=== PATIENT | female | born 1940 | race Caucasian/White ===

== ENCOUNTER 2018-04-18 10:42 | Inpatient (IN) | payer OTHER, MEDICAID ==
[~2018-04-18] VITALS: Ht 165.1 cm; Wt 116.1 kg
[2018-04-18 10:42] VITALS: BP 138/75
[~2018-04-18 10:42] MED LIST: ALLO300T28 PO; BENA1TAB PO; GLIM4TAB PO; METF100028 PO; [UNRECOGNIZED DRUG - CODE] PO
--- NOTE | 2018-04-18 10:42 | NUR ---
Pt taken to bed 10 via w/c and triaged at bedside. at bedside providing history.
--- NOTE | 2018-04-18 10:44 | NUR ---
PT TAKEN BY WHEELCHAIR TO ER BED 10
--- NOTE | 2018-04-18 10:50 | NUR ---
77Y/F BIB C/O ALOC FOR THE PAST 2 DAYS; PER PT NORMALLY CONVERSES AND "TALKS A LOT." BUT PATIENT NOW IS DISORIENTED AND CONFUSED AND HAS NOT BEEN TALKING; STATES " I THINK SHE HAD ANOTHER STROKE." VSS; PATIENT POSITIONED FOR COMFORT; HOB ELEVATED; BEDRAILS UP X1; BED DOWN. ER MD MADE AWARE OF PT STATUS.
[2018-04-18] MEDS ORDERED: CLON0.1T42 PO (10:56)
[2018-04-18] MEDS ORDERED: TRAM50TA1 PO (10:56)
[2018-04-18] MEDS ORDERED: INSU100S22 SC (10:56)
[2018-04-18] MEDS ORDERED: CARB1TER9 PO (10:56)
[2018-04-18] MEDS ORDERED: SIMV40TA1 PO (10:56)
[2018-04-18] MEDS ORDERED: NIFE30TE8 PO (10:56)
[2018-04-18] MEDS ORDERED: CLON0.5T PO (10:56)
--- NOTE | 2018-04-18 11:00 | NUR ---
Patient being evaluated by physician at bedside.
--- NOTE | 2018-04-18 12:01 | NUR ---
PT TAKEN TO CT
--- NOTE | 2018-04-18 12:10 | NUR ---
LAB AT BEDSIDE
--- NOTE | 2018-04-18 12:10 | NUR ---
PT BACK FROM CT
[2018-04-18 12:56] LABS: BASOPHILS # (AUTO) 0.2 K/uL (0.00-0.22); BASOPHILS % (AUTO) 1.9 % (0.0-2.0); EOSINOPHILS # (AUTO) 0.4 K/uL (0-0.4); EOSINOPHILS % (AUTO) 4.9 % (0.0-4.0); HEMATOCRIT 40.4 % (36-48); HEMOGLOBIN 13.3 g/dL (12.0-16.0); LYMPHOCYTES # (AUTO) 1.8 K/uL (2.5-16.5); LYMPHOCYTES % (AUTO) 20.7 % (20.5-51.1); MEAN CORPUSCULAR HEMOGLOBIN 29 pg (27-31); MEAN CORPUSCULAR HGB CONC 33 g/dL (33-37); MEAN CORPUSCULAR VOLUME 88.7 fL (80-94); MONOCYTES # (AUTO) 0.5 K/uL (0.8-1.0); MONOCYTES % (AUTO) 6.1 % (1.7-9.3); NEUTROPHILS # (AUTO) 5.8 K/uL (1.8-7.7); NEUTROPHILS % (AUTO) 66.4 % (42.2-75.2); PLATELET COUNT (AUTO) 226 K/uL (140-450); RED BLOOD CELL COUNT(AUTO) 4.56 MIL/uL (4.20-5.40); RED CELL DISTRIBUTION WIDTH 13.7 % (11.6-13.7); WHITE BLOOD COUNT (AUTO) 8.8 K/uL (4.8-10.8)
[2018-04-18 13:03] LABS: ANION GAP 9.3 (8-16); CARBON DIOXIDE 32.9 mmol/L (21-32); CHLORIDE 106 mmol/L (98-107); CREATININE 1.6 mg/dL (0.6-1.3); GLUCOSE 163 mg/dL (74-106); POTASSIUM 4.2 mmol/L (3.5-5.1); SODIUM SERUM 144 mmol/L (136-145); UREA NITROGEN, BLOOD 24 mg/dL (7-18)
[2018-04-18 13:09] LABS: ALBUMIN 2.7 g/dL (3.4-5.0); ASPARTATE AMINOTRANSFERASE 21 U/L (15-37); TOTAL BILIRUBIN 0.3 mg/dL (0.0-1.0)
[2018-04-18 13:25] LABS: PROTHROMBIN TIME 10.4 secs (10.8-13.4)
[2018-04-18] MEDS ORDERED: INSULIN LISPRO SLIDING SCALE 100 UNITS/ML VIAL SUBQ PRN (14:30)
[2018-04-18] MEDS ORDERED: ONDANSETRON 4 MG/2 ML VIAL IVP PRN (14:30)
[2018-04-18] MEDS ORDERED: DEXTROSE 50% 50 ML SYR IVP PRN (14:30)
[2018-04-18] MEDS ORDERED: LORazepam 2 MG/ML VIAL IVP PRN (14:30)
[2018-04-18] MEDS ORDERED: MORPHINE SULFATE 2 MG/ML SYR IVP PRN (14:30)
--- NOTE | 2018-04-18 15:24 | NUR ---
Patient will be admitted to care of . Admited to TELE FLOOR. Will go to room 107-B. Belongings list completed. Report to TRUDY TINAJERO.
--- NOTE | 2018-04-18 15:50 | NUR ---
PATIENT ARRIVED ON GURNEY FROM ER. ADMITTED WITH NEW ONSET CVA. PATIENT HAS HX OF CVA WITH RIGHT SIDED WEAKNESS. HX DEMENTIA, ALERT TO SELF. ORIENTED PT TO PLACE AND HOSPITAL ENVIRONMENT. PATIENT'S SPOUSE AND CHILDREN AT BEDSIDE. PATIENT FOLLOWS COMMANDS, MUMBLED SPEECH. IV SITE PATENT AND INTACT. ON ROOM AIR, NO S/S OF ACUTE RESPIRATORY DISTRESS NOTED. OFFLOADED PRESSURE AREAS. CALL LIGHT WITHIN REACH. PATIENT AND FAMILY MADE AWARE OF PLAN OF CARE, IN AGREEMENT.
[2018-04-18 16:00] VITALS: BP 136/67
[2018-04-18] MEDS: NACL 0.9% 1,000 ML IV SCH (16:50)
[2018-04-18] MEDS: BLOOD GLUCOSE MONITORING 1 DEV DEV FS SCH ×2 (16:58→20:36)
--- NOTE | 2018-04-18 18:30 | NUR ---
PATIENT ASSISTED IN CHANGING OF POSITIONS. OFFLOADED PRESSURE AREAS. PETTY CATH TO GRAVITY IN MODERATE AMOUNT. IV SITE PATENT AND INTACT.
--- NOTE | 2018-04-18 19:20 | NUR ---
SBAR REPORT GIVEN TO NIGHT RN AT PT BEDSIDE. PATIENT RESTING IN BED, FAMILY AT BEDSIDE. PATIENT CONTINUES TO HAVE PERIODS OF CONFUSION. NO ACUTE DISTRESS NOTED.
--- NOTE | 2018-04-18 19:21 | NUR ---
REPORT RECEIVED FROM AM NURSE. PT IN STABLE CONDITION. HEART SOUNDS CLEAR. LUNG CLEAR BILATERALLY. BOWEL SOUNDS ACTIVE X4 QUADRANTS. AAOX2. INTRODUCED SELF TO PT AND DAUGHTER. BOARD UPDATED. IV SITE PATENT AND INTACT. SKIN WARM, DRY, AND INTACT WITH NO OPEN WOUNDS. PT SPEECH MUMBLED. BED LOCKED IN LOW POSITION. CALL BRIONES WITHIN REACH. WILL CONTINUE TO MONITOR.
[2018-04-18 20:00] VITALS: BP 107/65
--- NOTE | 2018-04-18 20:20 | NUR ---
PT HAS BS OF 69. DR TAVARES CALLED TORB D5NS AT 50ML/HR. ORDER PUT IN.
[2018-04-18] MEDS: DEXT 5% /NACL 0.9% 1,000 ML IV SCH (20:36)
[2018-04-18 21:46] LABS: CREATINE KINASE MB 1.5 ng/mL (0-3.6)
--- NOTE | 2018-04-18 22:30 | NUR ---
PT AWAKE AND ALERT. DAUGHTER AT BEDSIDE. PT SPEAKING BUT SLIGHTLY MUMBLED. DAUGHTER SAID AFTER THE D5NS ORDERED, THE PT IS MORE ALERT.
[2018-04-19] VITALS: BP 108/52
--- NOTE | 2018-04-19 01:30 | NUR ---
PT ASLEEP COMFORTABLY IN BED WITH DAUGHTER AT BEDSIDE. PT NOT IN ANY ACUTE DISTRESS. WILL CONTINUE TO MONITOR.
[2018-04-19] MEDS: NACL 0.9% 1,000 ML IV SCH ×2 (02:58→15:28)
--- NOTE | 2018-04-19 03:30 | NUR ---
PT ASLEEP COMFORTABLY SUPINE. PT NOT IN ANY ACUTE DISTRESS. DAUGHTER SLEEPING NEAR BEDSIDE. WILL CONTINUE TO MONITOR.
[2018-04-19 04:00] VITALS: BP 110/78
--- NOTE | 2018-04-19 05:30 | NUR ---
PT BLOOD BEING DRAWN. AWAKE BUT DROWSY. PT TOLERATING WELL. WILL CONTINUE TO MONITOR.
[2018-04-19] MEDS: BLOOD GLUCOSE MONITORING 1 DEV DEV FS SCH ×4 (05:49→21:00)
--- NOTE | 2018-04-19 07:05 | NUR ---
REPORT GIVEN TO AM NURSE. PT IN STABLE CONDITION.
--- NOTE | 2018-04-19 07:06 | NUR ---
RECEIVED REPORT FROM INTELLIGENCE RESEARCH SPECIALIST RN. PATIENT IS SLEEPING BUT AWAKENS EASILY BY CALLING NAME. HAS NO SIGNS AND SYMPTOMS OF ACUTE DISTRESS NOTED AT THIS TIME. HAS IV TO THE LEFT AC 20G RUNNING D5NS AT 50ML/HR. SITE IS CLEAN, DRY, PATENT AND INTACT. HAS PETTY CATHETER, DRAINING TO GRAVITY. FAMILY IS AT THE BEDSIDE AND DISCUSSED PLAN OF CARE WITH THEM AND PATIENT. BED IN LOWEST POSITION, SIDE RAILS UP X3, CALL LIGHT WITHIN REACH. WILL CONTINUE TO MONITOR.
[2018-04-19 07:26] LABS: ANION GAP 14.1 (8-16); CARBON DIOXIDE 29.7 mmol/L (21-32); CHLORIDE 108 mmol/L (98-107); CREATININE 1.3 mg/dL (0.6-1.3); GLUCOSE 86 mg/dL (74-106); POTASSIUM 3.8 mmol/L (3.5-5.1); SODIUM SERUM 148 mmol/L (136-145); UREA NITROGEN, BLOOD 17 mg/dL (7-18)
[2018-04-19 07:37] LABS: BASOPHILS # (AUTO) 0.1 K/uL (0.00-0.22); BASOPHILS % (AUTO) 1.2 % (0.0-2.0); EOSINOPHILS # (AUTO) 0.4 K/uL (0-0.4); EOSINOPHILS % (AUTO) 4.8 % (0.0-4.0); HEMATOCRIT 37.6 % (36-48); HEMOGLOBIN 12.6 g/dL (12.0-16.0); LYMPHOCYTES # (AUTO) 2.6 K/uL (2.5-16.5); LYMPHOCYTES % (AUTO) 27.6 % (20.5-51.1); MEAN CORPUSCULAR HEMOGLOBIN 29 pg (27-31); MEAN CORPUSCULAR HGB CONC 34 g/dL (33-37); MONOCYTES # (AUTO) 0.7 K/uL (0.8-1.0); MONOCYTES % (AUTO) 7.1 % (1.7-9.3); NEUTROPHILS # (AUTO) 5.5 K/uL (1.8-7.7); NEUTROPHILS % (AUTO) 59.3 % (42.2-75.2); PLATELET COUNT (AUTO) 216 K/uL (140-450); RED BLOOD CELL COUNT(AUTO) 4.33 MIL/uL (4.20-5.40); RED CELL DISTRIBUTION WIDTH 13.5 % (11.6-13.7); WHITE BLOOD COUNT (AUTO) 9.3 K/uL (4.8-10.8)
[2018-04-19 08:00] VITALS: BP 143/63
--- NOTE | 2018-04-19 08:37 | NUR ---
PATIENT HAS BEEN SCREENED AND CATEGORIZED HIGH NUTRITION RISK. PATIENT WILL BE SEEN WITHIN 1-2 DAYS OF ADMISSION. 04/19/18 04/20/[address]
[2018-04-19] MEDS ORDERED: ENOXAPARIN 40 MG/0.4 ML SYR SUBQ SCH (09:00)
[2018-04-19] MEDS: ASPIRIN 325 MG TAB PO SCH (09:00)
[2018-04-19] MEDS: ENOXAPARIN 30 MG/0.3 ML SYR SUBQ SCH (09:00)
--- NOTE | 2018-04-19 09:30 | NUR ---
ECHOCARDIOGRAM COMPLETED
--- NOTE | 2018-04-19 10:16 | NUR ---
SPO[facility] FAXED INITIAL REVIEW TO [phone] PHONE WINSTON [phone] RECEIVED MESSAGE FROM LEANA FROM [facility]. FAXED INITIAL REVIEW TO [phone] PHONE [phone]
[2018-04-19 12:00] VITALS: BP 170/74
--- NOTE | 2018-04-19 12:40 | NUR ---
SPOKE WITH DR ANDERSON REGARDING PATIENTS BLOOD PRESSURE BEING 170/74. ORDERED LABETOLOL 10MG IVP ONCE. WILL FOLLOW THROUGH WITH ORDER.
[2018-04-19] MEDS ORDERED: LABETALOL 100 MG/20 ML VIAL IV SCH (12:49)
[2018-04-19] MEDS: CARBIDOPA/LEVODOPA 25/100 MG 1 TAB PO SCH ×2 (15:00→19:00)
[2018-04-19 15:18] LABS: CREATINE KINASE MB 1.4 ng/mL (0-3.6)
[2018-04-19 16:00] VITALS: BP 130/58
[2018-04-19] MEDS: DEXT 5% /NACL 0.9% 1,000 ML IV SCH (16:25)
--- NOTE | 2018-04-19 16:26 | NUR ---
04/19/18 RD INITIAL ASSESSMENT COMPLETED PLEASE REFER TO NUTRITION ASSESSMENT UNDER CARE ACTIVITY FOR ESTIMATED NUTRITIONAL NEEDS. 1. CONTINUE NPO MEDICALLY APPROPRIATE 2. IF/WHEN MEDICALLY STABLE, CONSIDER ADVANCING DIET TO CARDIAC, TOLERATED 3. PROVIDED FOOD AND DRUG INTERACTION EDUCATION WITH PARKINSONSS MEDICATION AND HIGH PROTEIN DIET. 4. RD TO FOLLOW-UP 3-5 DAYS, MODERATE RISK MEENU ESPINOZA RD
--- NOTE | 2018-04-19 17:09 | NUR ---
SURVEILLANCE OPERATOR NOTE [id number] Bedside swallow evaluation completed following clearance by TANVI Freitas. Please refer to SURVEILLANCE OPERATOR evaluation for full report. Recommend: -NPO w/consideration for short term enteral feeding/IV fluids 2/2 lethargy and inability to sustain PO intake -Consideration for half-way enteral feeding/comfort measures if pt status does not improve -Oral care done w/suction only -Physician may re-order swallow evaluation if pt status improves. -No further SURVEILLANCE OPERATOR intervention indicated. G8996: CN G8997: CN G8998: CN Swallow NOMS 1
--- NOTE | 2018-04-19 19:30 | NUR ---
ENDORSED PATIENT TO OCEAN IMPORT REPRESENTATIVE RN FOR CONTINUITY OF CARE. PATIENT IN STABLE CONDITION.
--- NOTE | 2018-04-19 19:31 | NUR ---
RECEIVED REPORT AT PT BEDSIDE FROM DAY SHIFT RN, PT IS Sky/JOSE2, ON ROOM AIR, NEPALI SPEAKING. PT ABLE TO MAKE NEEDS KNOWN, ABLE TO FOLLOW COMMANDS. PT HAS SLURRED SPEECH. RESPIRATIONS EVEN AND UNLABORED. PT SKIN INTACT. 22G IV TO LEFT AC, ASYMPTOMATIC, INTACT AND PATENT. UPDATED BOARD. FAMILY AT BEDSIDE. DISCUSSED PLAN OF CARE WITH PT AND FAMILY, THEY VERBALIZED UNDERSTANDING. VITAL SIGNS WITHIN NORMAL LIMITS. PT STABLE, NO SIGNS OF DISTRESS NOTED AT THIS TIME. BED IN LOWEST POSITION, BED ALARM ON. CALL LIGHT WITHIN REACH, WILL CONTINUE TO MONITOR. Addendum: 04/20/18 at 0411 by Jill Alonso RN PLEASE DISREGARD.
--- NOTE | 2018-04-19 19:32 | NUR ---
RECEIVED REPORT AT PT BEDSIDE FROM DAY SHIFT RN, PT IS A/OX2, ON ROOM AIR, TRINIDADIAN SPEAKING. PT ABLE TO MAKE NEEDS KNOWN, ABLE TO FOLLOW COMMANDS. PT HAS SLURRED SPEECH. RESPIRATIONS EVEN AND UNLABORED. PT HAS AN ABRASION TO RIGHT FOREARM AND SOME REDNESS ON FACE FROM SCRATCHING. 22G IV TO LEFT AC, ASYMPTOMATIC, INTACT AND PATENT. UPDATED BOARD. FAMILY AT BEDSIDE. DISCUSSED PLAN OF CARE WITH PT AND FAMILY, THEY VERBALIZED UNDERSTANDING. VITAL SIGNS WITHIN NORMAL LIMITS. PT STABLE, NO SIGNS OF DISTRESS NOTED AT THIS TIME. BED IN LOWEST POSITION, BED ALARM ON. CALL LIGHT WITHIN REACH, WILL CONTINUE TO MONITOR.
[2018-04-19 19:58] VITALS: BP 138/78
--- NOTE | 2018-04-19 21:00 | NUR ---
NO INSULIN COVERAGE NEEDED FOR BS 144, PT NPO, NOT ABLE TO TAKE PO MEDICATIONS BECAUSE SWALLOW EVALUATION WAS NOT DONE AND DIAGNOSIS IS CVA. PT STABLE, NO SIGNS OF DISTRESS NOTED AT THIS TIME. BED IN LOWEST POSITION, BED ALARM ON. CALL LIGHT WITHIN REACH, WILL CONTINUE TO MONITOR.
--- NOTE | 2018-04-19 23:19 | NUR ---
PT SCRATCHING FACE A LOT VERY OFTEN. PT DAUGHTER ASKED HER TO STOP, I ASKED HER TO STOP SCRATCHING FACE WELL BECAUSE SHE IS IRRITATING HER SKIN, PT NODDED IN AGREEMENT.
[2018-04-20] VITALS: BP 158/71
--- NOTE | 2018-04-20 | NUR ---
BP SLIGHTLY ELEVATED, OTHERWISE VITAL SIGNS WITHIN NORMAL LIMITS. PT STABLE, NO SIGNS OF DISTRESS NOTED AT THIS TIME. BED IN LOWEST POSITION, BED ALARM ON. CALL LIGHT WITHIN REACH, WILL CONTINUE TO MONITOR.
--- NOTE | 2018-04-20 02:19 | NUR ---
STARTED NEW 20G IV TO LEFT FOREARM. PT TOLERATED WELL. Addendum: 04/20/18 at 0220 by Jill Alonso RN ALSO REMOVED OTHER 22G IV ON LEFT AC BECAUSE IT WAS LEAKING EXCESSIVELY. HELD PRESSURE UNTIL BLEEDING STOPPED.
[2018-04-20] MEDS: NACL 0.9% 1,000 ML IV SCH (03:58)
[2018-04-20 04:00] VITALS: BP 131/85
--- NOTE | 2018-04-20 04:00 | NUR ---
VITAL SIGNS WITHIN NORMAL LIMITS. PT STABLE, NO SIGNS OF DISTRESS NOTED AT THIS TIME. BED IN LOWEST POSITION, BED ALARM ON. CALL LIGHT WITHIN REACH, WILL CONTINUE TO MONITOR.
--- NOTE | 2018-04-20 06:21 | NUR ---
PT HAS BEEN SCRATCHING FACE THROUGHOUT NIGHT. NOW THERE IS SLIGHT ERYTHEMA TO CHEEKS.
[2018-04-20] MEDS: BLOOD GLUCOSE MONITORING 1 DEV DEV FS SCH ×2 (06:39→11:40)
[2018-04-20] MEDS: CARBIDOPA/LEVODOPA 25/100 MG 1 TAB PO SCH ×2 (06:39→11:00)
--- NOTE | 2018-04-20 06:39 | NUR ---
DID NOT ADMINISTER MORNING MEDICATION AND DID NOT ADMINISTER ANY INSULIN COVERAGE BECAUSE PT NPO.
--- NOTE | 2018-04-20 07:40 | NUR ---
ASSUMED CONTINUITY OF CARE. NO SIGNS AND SYMPTOMS OF ACUTE DISTRESS NOTED. INITIAL ASSESSMENT DONE. PT. DAUGHTER -VANDANA ON BEDSIDE. EXPLAINED DIAGNOSIS, PLAN OF CARE, PAIN MANAGEMENT TEACHING, USE OF CALL LIGHT/BED/TV/BATHROOM. FALL PRECAUTION APPLIED. CALL LIGHT WITHIN REACH.
[2018-04-20 08:00] VITALS: BP 190/76
--- NOTE | 2018-04-20 08:00 | NUR ---
PAGED DR. ANDERSON AND SPOKE TO DEE REGARDING PT. HIGH BP. LEFT CALL BACK NUMBER. INFORMED CHARGE NURSE.
--- NOTE | 2018-04-20 08:10 | NUR ---
DR. ANDERSON CALLED BACK, INFORMED THAT PT. VS; BP 190/76, HR 67, RESP 18, 02 SAT 94% ROOM AIR, TEMP 98.7 TEMPORAL. NO C/O PAIN. GOT T.O. READ BACK, AND VERIFIED.
[2018-04-20] MEDS ORDERED: hydrALAZINE 20 MG/ML VIAL IVP PRN ×2 (08:15→08:20)
[2018-04-20] MEDS: ASPIRIN 325 MG TAB PO SCH (09:00)
[2018-04-20] MEDS: ENOXAPARIN 30 MG/0.3 ML SYR SUBQ SCH (09:11)
--- NOTE | 2018-04-20 10:18 | NUR ---
FAXED CONCURRENT REVIEW TO [facility] [phone] PHONE LEANA [phone] FAXED CONCURRENT REVIEW TO [facility] [phone]. RECEIVED ORDER FOR MRI BY DR. ANDERSON. SPOKE WITH WINSTON FROM [facility]. SHE SAID FOR TRANSFER TO HOSPITAL FOR MRI, USE [facility]. I CALLED [facility] AND SPOKE WITH MARY AND FAXED FACE SHEET. I SPOKE WITH DR. ANDERSON AND HE SAID THAT DR. RICH WOULD BE THE ACCEPTING AND DR. RICH WOULD CALL ADMITTING.
[2018-04-20 12:00] VITALS: BP 150/53
--- NOTE | 2018-04-20 12:53 | NUR ---
PHYSICAL THERAPY CO-SIGN The Physical Therapy Progress Notes documented by Grinding Supervisor have been reviewed. I CONCUR W/ENVIRONMENTAL SERVICES PROJECT MANAGER NOTE; CONT PER TX PLAN Reviewed/Co-Signed by: Arlette Corcoran, PT Documentation Done by: NAT SANDS PTA Addendum: 04/20/18 at 1254 by Arlette Corcoran PT Amended: Links added.
--- NOTE | 2018-04-20 12:56 | NUR ---
PER REQUEST OF [facility] FAXED TRANSFER BACK AGREEMENT TO THEM. MARY FROM [facility] CALLED. THE PATIENT CAN GO TO ROOM 268A ANYTIME UNDER DR. RICH. I CALLED WINSTON AT [facility] AND INFORMED HER. SHE SAID FOR [facility] TRANSPORT, NO AUTH NEEDED. I CALLED THEA TINAJEROBEDSPREAD INSPECTOR NURSE AND INFORMED HER. PHONE FOR REPORT, [phone]. I CALLED [facility] AND SET UP ALS TRANSPORT TO [facility] FOR 2P.M.AND INFORMED THEA TINAJERO
--- NOTE | 2018-04-20 13:55 | NUR ---
D/C TO [facility] VIA GURNEY WITH MEDICAL TRANSPORTER ACCOMPANIED BY PT. IVAN DIAMOND. IN STABLE CONDITION. INFORMED CHARGE NURSE SAHIL CORNELL.
== END 2018-04-20 13:55 | disposition short-term general hospital (02) | DRG 64 ==
LOC: MED 10:42 → MTU 14:28
PROVIDERS: ADMIT Hospitalist; ATTEND Hospitalist
DX: I63.9 Cerebral infarction, unspecified (principal); N17.0 Acute kidney failure with tubular necrosis; E44.1 Mild protein-calorie malnutrition; N18.9 Chronic kidney disease, unspecified; E78.5 Hyperlipidemia, unspecified; G20 Parkinson's disease; M19.90 Unspecified osteoarthritis, unspecified site; E86.0 Dehydration; Z88.1 Allergy status to other antibiotic agents; Z88.2 Allergy status to sulfonamides; I12.9 Hypertensive chronic kidney disease with stage 1 through stage 4 chronic kidney disease, or unspecified chronic kidney disease; E11.22 Type 2 diabetes mellitus with diabetic chronic kidney disease; Z87.891 Personal history of nicotine dependence
CPT/HCPCS: 36415; 70450; 71045; 80048; 80053; 82550; 82553; 82948; 83735; 84484; 85025; 85610; 85730; 87081; 92610; 93005; 93880; 97110; 97140; 97530; 99285; J0360; J1650; J1815; J3490; J7030; J7042; Q0092